=== PATIENT | male | born 1985 | race Caucasian/White ===

== ENCOUNTER 2018-04-24 12:24 | Emergency (ER) | payer OTHER ==
[~2018-04-24] VITALS: Ht 175.3 cm; Wt 76.8 kg
[2018-04-24 12:36] VITALS: Ht 175.3 cm; Wt 76.8 kg
[2018-04-24] MEDS ORDERED: SUBOXONE 2 MG-01 TAB SL (12:38)
[2018-04-24] MEDS ORDERED: KLONOPIN1 MG PO (12:39)
[2018-04-24 14:23] VITALS: BP 125/60
== END 2018-04-24 14:24 | disposition home or self-care (01) ==
LOC: D.ER 12:24
DX: S00.93XA Contusion of unspecified part of head, initial encounter (principal); V49.9XXA Car occupant (driver) (passenger) injured in unspecified traffic accident, initial encounter; Y93.89 Activity, other specified; Y92.410 Unspecified street and highway as the place of occurrence of the external cause; F07.81 Postconcussional syndrome